=== PATIENT | female | born 1955 | race Caucasian/White ===

== ENCOUNTER 2025-05-16 08:42 | Outpatient (CLI) | payer MEDICARE ==
--- NOTE | 2025-05-16 12:20 | RADIOLOGY REPORT ---
CT chest History: PERSONAL HISTORY OF NICOTINE DEPENDENCE TECHNIQUE: Images were obtained on the Siemens Sensation-16 CT Scanner then reformatted in sagittal and coronal plane. FINDINGS: Minimal bilateral apical parenchymal scarring. There are bullae present throughout the lung more[place] slightly greater in the upper lung moreland than the lower. There are no suspicious mass lesions. No infiltrates or effusions. Heart size normal. Mild pericardial thickening. No enlarged axillary or mediastinal lymph nodes IMPRESSION: 1. Emphysematous changes within the lungs. 2. No suspicious mass lesions. No acute cardiopulmonary pathology. 3. Small pericardial effusion Computed Tomographic Radiation Dosimetry Report: Total CTDI vol = 2.6 mGy Total DLP = 78 mGy-cm All CT scans at this medical facility are performed using dose modulation techniques as appropriate to a performed exam including the following: Automated exposure control was utilized; adjustment of the MA and/or KvP according to patient size; and use of iterative reconstruction technique.
== END 2025-05-16 23:59 | disposition home or self-care (01) ==
LOC: 64 CT 08:42
PROVIDERS: ATTEND Physician Assistant
DX: Z12.2 Encounter for screening for malignant neoplasm of respiratory organs (principal); J43.9 Emphysema, unspecified; Z87.891 Personal history of nicotine dependence; I31.39 Other pericardial effusion (noninflammatory)
CPT/HCPCS: 71271